=== PATIENT | female | born 1960 ===

== ENCOUNTER 2017-07-13 10:06 | Day surgery (SDC) | payer OTHER ==
[2017-07-09 09:25] VITALS: BMI 28.4
[2017-07-13] MEDS ORDERED: ceFAZolin IV 1 gm in Dextrose 1 GM/50 ML BAG IVPB ONE (12:57)
[2017-07-13] MEDS ORDERED: Lidocaine 1% Inj (20ml) ONE (12:58)
[2017-07-13] MEDS ORDERED: Bupivacaine HCl 0.25% PF (10 ml) Inj ONE (12:58)
[2017-07-13] MEDS ORDERED: Midazolam 2 MG/2 ML VIAL ONE (13:00)
[2017-07-13] MEDS ORDERED: Lactated Ringer's 1,000 ML IV ONE (13:00)
[2017-07-13] MEDS ORDERED: Propofol 10 mg/ml Inj (20 ML) ONE (13:00)
[2017-07-13] MEDS ORDERED: Oxycodone/Acetaminophen 5/325 mg Tab PO PRN (13:34)
[2017-07-13] MEDS ORDERED: HYDROmorphone 0.5 mg/0.5 ml ISec IVP PRN (13:48)
[2017-07-13] MEDS ORDERED: Lactated Ringer's 1,000 ML IV SCH (14:00)
[2017-07-13 15:02] VITALS: BP 110/72; PULSE 63; RESP 18; TEMP 97; O2SAT 97
--- NOTE | 2017-07-14 00:49 | OP ---
PROCEDURE DATE: 07/13/2017 PREOPERATIVE DIAGNOSIS: Mass on the right knee. POSTOPERATIVE DIAGNOSIS: Mass on the right knee. PROCEDURE PERFORMED: 1. Wide deep excision (radical resection) of 3-cm neoplasm of the right knee (05868). 2. Adjacent tissue transfer closure of 32 sq. cm (27580). SURGEON: José Luis Maynard MD ANESTHESIA: General. BLOOD LOSS: Less than 40 mL. POSTOP CONDITION: Stable. INDICATIONS FOR SURGERY: This is a 57-year-old female, presents with a mass on her right knee, suspicious for neoplasm. She will now undergo wide deep excision. DESCRIPTION OF PROCEDURE: Patient was taken to the operating room. IV sedation was administered. The right knee was prepped and draped. Generous elliptical incision was made. It was carried down into the fascial layer. Bleeding was controlled using Bovie. Generous tissue flaps including muscle and fascia were raised. Counter incisions were made in order to perform an advancement flap closure of 32 sq. cm. This was done using multiple layers of Monocryl, subcuticular Monocryl, and skin clips. Patient tolerated the procedure well. Returned to the recovery room in stable condition. José Luis Maynard MD
== END 2017-07-13 15:46 | disposition home or self-care (01) ==
LOC: C.SDS 10:06
PROVIDERS: ATTEND Surgery
DX: L72.0 Epidermal cyst (principal)
CPT/HCPCS: 11404; 88307; J0690; J2250; J2704; J3010; J7120